=== PATIENT | female | born 1985 | race American Indian/Alaskan Native ===

== ENCOUNTER 2017-01-23 04:17 | Inpatient (IN) | payer OTHER, MEDICAID ==
[2017-01-23] MEDS ORDERED: XYLOCAINE 2% INFILTRATI ONE (04:35)
[2017-01-23] MEDS ORDERED: ZOFRAN IV PRN (04:35)
[2017-01-23] MEDS ORDERED: BRETHINE SUB-Q PRN (04:35)
[2017-01-23] MEDS ORDERED: POLYCILLIN/NS 2 GM/100 ML 2 GM/100 ML BAG IV ONE ×2 (04:35→04:41)
[2017-01-23] MEDS ORDERED: ePHEDrine SULFATE IV PRN (04:35)
[2017-01-23] MEDS ORDERED: SUBLIMAZE IV PRN (04:35)
[2017-01-23] MEDS ORDERED: MINERAL OIL PO PRN (04:35)
[2017-01-23] MEDS ORDERED: LACTATED RINGERS 1,000 ML ONE (04:40)
[2017-01-23] MEDS ORDERED: SUBLIMAZE ONE (04:41)
--- NOTE | 2017-01-23 04:43 | History and Physical Report ---
History of Present Illness Date of examination: 01/23/17 (pt presents in active labor) Date of admission: 01/23/17 04:28 History of present illness: EDC Confirmation: 01/31/2017 Gestational Age: 7 1/7 weeks Past History : 4 Para: 1 Past Medical History: Reviewed history from 06/05/2013 and no changes required: Negative Past Medical History Hyperlipidemia Past Surgical History: Reviewed history from 07/10/2013 and no changes required: negative Past Medical History Abnormal PAP: positive, unsure of when or type JCARLOS Exposure: negative Infertility: negative Uterine Anomaly: negative Uterine Surgery (not C/S): negative Other Gynecologic Problems: negative Social Hx: Patient is single Infection History Hx of STD: none HIV Risk Eval: low risk Hepatitis B Risk Eval: low risk Personal hx. of genital herpes: no Partner hx. of genital herpes: no Rash, Viral, or Febrile illness since last LMP? no Varicella/Chicken Pox Status: Previous Disease Genetic History Congenital Heart Defect: Mom: no Dad: no Dragan Disease: Mom: no Dad: no Thalassemia Mom: no Dad: no Neural Tube Defect Mom: no Dad: no Down's Syndrome Mom: no Dad: no Bc-Sachs Mom: no Dad: no Sickle Cell Disease/Trait Mom: no Dad: no Hemophilia Mom: no Dad: no Muscular Dystrophy Mom: no Dad: no Cystic Fibrosis Mom: no Dad: no [place] Chorea Mom: no Dad: no Mental Retardation Mom: no Dad: no Fragile X Mom: no Dad: no Other Genetic/Chromosomal Disorder Mom: no Dad: no Child w/other defect Mom: no Dad: no Enviromental Exposures Xray Exposure: no Medication, drug, or alcohol use since LMP: no Chemical/Other Exposure: no Exposure to Cat Liter: no Hx of Parvovirus (Fifth Disease): no Occupational Exposure to Children: none Active Medications: None Current Allergies: No known allergies Laboratory Results Date/Time Collected: 06/15/2016 Routine Urinalysis Leukocytes: negative Nitrite: negative Urobilinogen: negative Protein: Negative Blood: negative Ketone: negative Bilirubin: negative Glucose: Negative Urine HCG: positive Review of Systems General Denies fever, chills, sweats, anorexia, fatigue, weakness, malaise, weight loss and sleep disorder. Denies nausea, vomiting, headache, swelling of legs, abdominal pain, vaginal discharge, vaginal bleeding and contractions. Denies vaginal discharge, incontinence, dysuria, hematuria, urinary frequency, amenorrhea, menorrhagia, abnormal vaginal bleeding, pelvic pain, genital sores, decreased libido, painful periods, painful sex, urinary urgency, hot flashes, vaginal dryness, vaginal itching and vaginal odor. CV Denies chest pains, palpitations, syncope, dyspnea on exertion, orthopnea, PND and peripheral edema. Resp Denies cough, dyspnea at rest, excessive sputum, hemoptysis, wheezing and pleurisy. GI Denies nausea, vomiting, diarrhea, constipation, change in bowel habits, abdominal pain, melena, hematochezia, jaundice, gas/bloating, indigestion/ heartburn, dysphagia and odynophagia. Endo Denies cold intolerance, heat intolerance, polydipsia, polyphagia, polyuria and unusual weight change. Breast Denies left breast lump, right breast lump, nipple discharge, bloody discharge from nipple, breast pain, abnormal mammogram and breast enlargement. MS Denies back pain, joint pain, joint swelling, muscle cramps, muscle weakness, stiffness, arthritis, sciatica, restless legs, leg pain at night and leg pain with exertion. Derm Denies rash, itching, dryness and suspicious lesions. Neuro Denies paralysis, paresthesias, headache, seizures, tremors, vertigo, transient blindness, frequent falls, frequent headaches and difficulty walking. Psych Denies depression, anxiety, irritability and mood swings. Eyes Denies blurring, diplopia, irritation, discharge, vision loss, eye pain and photophobia. ENT Denies earache, ear discharge, tinnitus, decreased hearing, nasal congestion, nosebleeds, sore throat and hoarseness. Allergy Denies urticaria, allergic rash, hay fever and recurrent infections. Heme Denies abnormal bruising, bleeding and enlarged lymph nodes. 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 03/01/14 Unknown Rx - Physical Exam Breasts: Positive: deferred Cardiovascular: Regular rate, Normal S1, Normal S2 Lungs: Positive: Normal air movement Abdomen: Positive: normal appearance, soft, normal bowel sounds. Negative: distention, tenderness Genitourinary (Female): Positive: normal external genitalia, normal perenium Vulva: both: normal Vagina: Positive: normal moisture. Negative: discharge Cervix: Negative: lesion, discharge Uterus: Positive: normal size, normal contour Adnexa: both: normal Anus/Rectum: Positive: normal perianal skin, heme negative. Negative: rectal mass, hemorrhoids Extremities: Positive: normal Deep Tendon Reflex Grade: Normal +2 - Obstetrical FHR: category 1 Uterine Contraction Monitor Mode: External Cervical Dilatation: 5 (BBOW) Cervical Effacement Percentage: 90 station: -1 Uterine Contraction Duration: q4-6 Uterine Contraction Pattern: Regular Uterine Contraction Intensity: Moderate Results All other labs normal. Laboratory Data-Patient Name: MASTER AREVALO Test Date Result Blood Type 07/13/2016 O Rh 07/13/2016 RH(D) POSITIVE Antibody Screen negative Rubella 07/13/2016 immune Serology (RPR) 07/13/2016 NR HBsAg 07/13/2016 NON-REACTIVE Hemoglobin 10/12/2016 10.6 Hematocrit 10/12/2016 32.8 Platelets 07/13/2016 336 THOUSAND/UL Chlamydia DNA 06/15/2016 NOT DETECTED GC DNA/Culture 06/15/2016 Urine Culture Group B Strep cult POSITIVE PAP 01/13/2016 Normal HIV 08/08/2013 AFP/Quad Screen 08/10/2016 Glucola Test 10/12/2016 93 3hr GTT (Fasting) 1 hr 2 hr 3 hr [facility]-Patient Name:MASTER AREVALO Test Date Result Varicella Ab Sickle Cell 07/13/2016 NEGATIVE PPD Fibronectin Cystic Fibrosis Parvovirus TSH 10/12/2016 0.52 Free T4 Hepatitis C 01/13/2016 NON-REACTIVE ALT AST Uric Acid Creatinine 24 hr Urine Protein AMIRAH Assessment and Plan 31yo @ 38w6d in active labor GBS+ Orders in EMR Anticipate delivery
[2017-01-23] MEDS ORDERED: LACTATED RINGERS 1,000 ML IV SCH (05:00)
[2017-01-23] MEDS ORDERED: PITOCin/NS 20 UNIT/1000ML DRIP 20 UNITS/1,000 ML BAG IV SCH (05:00)
[2017-01-23] MEDS ORDERED: PITOCin/NS 30 UNIT/500ML 30 UNITS/500 ML BAG IV SCH (05:00)
--- NOTE | 2017-01-23 05:46 | Progress Note ---
Assessment and Plan AROM meconium large amt of fluid Internal monitors NICU notified Re-eval as needed. Subjective - Subjective Date of service: 01/23/17 (poor quality tracing) Interval history: EDC Confirmation: 01/31/2017 Gestational Age: 7 1/7 weeks Past History : 4 Para: 1 Past Medical History: Reviewed history from 06/05/2013 and no changes required: Negative Past Medical History Hyperlipidemia Past Surgical History: Reviewed history from 07/10/2013 and no changes required: negative Past Medical History Abnormal PAP: positive, unsure of when or type JCARLOS Exposure: negative Infertility: negative Uterine Anomaly: negative Uterine Surgery (not C/S): negative Other Gynecologic Problems: negative Social Hx: Patient is single Infection History Hx of STD: none HIV Risk Eval: low risk Hepatitis B Risk Eval: low risk Personal hx. of genital herpes: no Partner hx. of genital herpes: no Rash, Viral, or Febrile illness since last LMP? no Varicella/Chicken Pox Status: Previous Disease Genetic History Congenital Heart Defect: Mom: no Dad: no Dragan Disease: Mom: no Dad: no Thalassemia Mom: no Dad: no Neural Tube Defect Mom: no Dad: no Down's Syndrome Mom: no Dad: no Bc-Sachs Mom: no Dad: no Sickle Cell Disease/Trait Mom: no Dad: no Hemophilia Mom: no Dad: no Muscular Dystrophy Mom: no Dad: no Cystic Fibrosis Mom: no Dad: no [place] Chorea Mom: no Dad: no Mental Retardation Mom: no Dad: no Fragile X Mom: no Dad: no Other Genetic/Chromosomal Disorder Mom: no Dad: no Child w/other defect Mom: no Dad: no Enviromental Exposures Xray Exposure: no Medication, drug, or alcohol use since LMP: no Chemical/Other Exposure: no Exposure to Cat Liter: no Hx of Parvovirus (Fifth Disease): no Occupational Exposure to Children: none Active Medications: None Current Allergies: No known allergies Laboratory Results Date/Time Collected: 06/15/2016 Routine Urinalysis Leukocytes: negative Nitrite: negative Urobilinogen: negative Protein: Negative Blood: negative Ketone: negative Bilirubin: negative Glucose: Negative Urine HCG: positive Review of Systems General Denies fever, chills, sweats, anorexia, fatigue, weakness, malaise, weight loss and sleep disorder. Denies nausea, vomiting, headache, swelling of legs, abdominal pain, vaginal discharge, vaginal bleeding and contractions. Denies vaginal discharge, incontinence, dysuria, hematuria, urinary frequency, amenorrhea, menorrhagia, abnormal vaginal bleeding, pelvic pain, genital sores, decreased libido, painful periods, painful sex, urinary urgency, hot flashes, vaginal dryness, vaginal itching and vaginal odor. CV Denies chest pains, palpitations, syncope, dyspnea on exertion, orthopnea, PND and peripheral edema. Resp Denies cough, dyspnea at rest, excessive sputum, hemoptysis, wheezing and pleurisy. GI Denies nausea, vomiting, diarrhea, constipation, change in bowel habits, abdominal pain, melena, hematochezia, jaundice, gas/bloating, indigestion/ heartburn, dysphagia and odynophagia. Endo Denies cold intolerance, heat intolerance, polydipsia, polyphagia, polyuria and unusual weight change. Breast Denies left breast lump, right breast lump, nipple discharge, bloody discharge from nipple, breast pain, abnormal mammogram and breast enlargement. MS Denies back pain, joint pain, joint swelling, muscle cramps, muscle weakness, stiffness, arthritis, sciatica, restless legs, leg pain at night and leg pain with exertion. Derm Denies rash, itching, dryness and suspicious lesions. Neuro Denies paralysis, paresthesias, headache, seizures, tremors, vertigo, transient blindness, frequent falls, frequent headaches and difficulty walking. Psych Denies depression, anxiety, irritability and mood swings. Eyes Denies blurring, diplopia, irritation, discharge, vision loss, eye pain and photophobia. ENT Denies earache, ear discharge, tinnitus, decreased hearing, nasal congestion, nosebleeds, sore throat and hoarseness. Allergy Denies urticaria, allergic rash, hay fever and recurrent infections. Heme Denies abnormal bruising, bleeding and enlarged lymph nodes. 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 Absent: distention, tenderness Uterus: Present: normal FHR: auscultation normal, category 1 Uterine Contraction Monitor Mode: Internal Cervical Dilatation: 6 (AROM/meconium) Cervical Effacement Percentage: 80 (ISE/IUPC placed) station: -1 Uterine Contraction Pattern: Regular Uterine Contraction Intensity: Moderate Extremities: normal Deep Tendon Reflex Grade: Normal +2
[2017-01-23 06:00] LABS: Hematocrit 32.2 % (30.3-42.9); Hemoglobin 10.5 gm/dl (10.1-14.3); Mean Corpuscular HGB Conc 33 % (30-34); Mean Corpuscular Volume 79 fl (79-97); Platelet Count 345 K/mm3 (140-440); Red Blood Count 4.07 M/mm3 (3.65-5.03); Red Cell Distribution Width 15.4 % (13.2-15.2); White Blood Count 7.5 K/mm3 (4.5-11.0)
[2017-01-23 06:07] LABS: Mean Corpuscular Hemoglobin 26 pg (28-32)
[2017-01-23] MEDS ORDERED: MILK OF MAGNESIA PO PRN (06:23)
[2017-01-23] MEDS ORDERED: TYLENOL PO PRN (06:23)
[2017-01-23] MEDS ORDERED: DULCOLAX PR PRN (06:23)
[2017-01-23] MEDS ORDERED: TUCKS PAD TP PRN (06:23)
[2017-01-23] MEDS ORDERED: PHENERGAN PO PRN (06:23)
[2017-01-23] MEDS ORDERED: BENADRYL PO PRN (06:23)
[2017-01-23] MEDS ORDERED: LANSINOH TP PRN (06:23)
[2017-01-23] MEDS ORDERED: NORCO 5/325 PO PRN (06:23)
--- NOTE | 2017-01-23 06:34 | Procedure Note ---
OB Delivery Note - Delivery Date of Delivery: 01/23/17 Air Bag Buffer: JESSICA COLVIN Estimated blood loss: 300cc - Vaginal Delivery presentation: vertex Delivery position: OA Intrapartum events: meconium, hydramnios Delivery induction: none Delivery augmentation: pitocin Delivery monitor: internal FHT, internal uterine Route of delivery: Delivery placenta: spontaneous Delivery cord: 3 umbilical vessels Episiotomy: none Delivery laceration: 1st degree Anesthesia: intravenous Delivery comments: NICU called to room for meconium Precipitous delivery controlled. live born male over intact perineum. Baby to warmer crying. Cord blood obt Placenta and membrane del complete and intact, 3 vessel cord. Placenta to pathology. Pit IM IV to be restarted, to hang IV pitocin. NICU arrived after delivery of baby. 8/9, EBL 300, Wgt 5-11. Mom and baby remain LDR stable. - Infant A at 1 minute: 8 at 5 minutes: 9 Infant Gender: Male (wgt 5-11)
[2017-01-23] MEDS ORDERED: SODIUM CHLORIDE FLUSH SYRINGE 10 ML IV PRN (07:00)
[2017-01-23] MEDS: MOTRIN PO SCH ×2 (08:07→14:21)
[2017-01-23] MEDS ORDERED: POLYCILLIN/NS 1 GM/50 ML 1 GM/50 ML BAG IV SCH (09:00)
[2017-01-23] MEDS: PRENATAL VITAMIN PO SCH (10:04)
[2017-01-23] MEDS: COLACE PO SCH (10:05)
[2017-01-24 00:04] LABS: Hematocrit 28.7 % (30.3-42.9); Hemoglobin 9.5 gm/dl (10.1-14.3)
[2017-01-24] MEDS: MOTRIN PO SCH ×3 (05:23→18:23)
--- NOTE | 2017-01-24 05:35 | Progress Note ---
Assessment and Plan - Patient Problems (1) Spontaneous vaginal delivery Onset Date: 01/23/17 Current Visit: Yes Status: Acute Plan to address problem: pt w/o complaint VSS FF Lochia small perineum intact H&H 04/28 drop r/t blood loss from delivery Pt is w/o s/sx of anemia. Doing well s/p vag delivery P: continue pathway Adv activity. GBS+ 48 hr hold on NB. Subjective - Subjective Date of service: 01/24/17 (pt w/o complaint) Principal diagnosis: male 01/23/17 Interval history: EDC Confirmation: 01/31/2017 Gestational Age: 7 1/7 weeks Past History : 4 Para: 1 Past Medical History: Reviewed history from 06/05/2013 and no changes required: Negative Past Medical History Hyperlipidemia Past Surgical History: Reviewed history from 07/10/2013 and no changes required: negative Past Medical History Abnormal PAP: positive, unsure of when or type JCARLOS Exposure: negative Infertility: negative Uterine Anomaly: negative Uterine Surgery (not C/S): negative Other Gynecologic Problems: negative Social Hx: Patient is single Infection History Hx of STD: none HIV Risk Eval: low risk Hepatitis B Risk Eval: low risk Personal hx. of genital herpes: no Partner hx. of genital herpes: no Rash, Viral, or Febrile illness since last LMP? no Varicella/Chicken Pox Status: Previous Disease Genetic History Congenital Heart Defect: Mom: no Dad: no Dragan Disease: Mom: no Dad: no Thalassemia Mom: no Dad: no Neural Tube Defect Mom: no Dad: no Down's Syndrome Mom: no Dad: no Bc-Sachs Mom: no Dad: no Sickle Cell Disease/Trait Mom: no Dad: no Hemophilia Mom: no Dad: no Muscular Dystrophy Mom: no Dad: no Cystic Fibrosis Mom: no Dad: no [place] Chorea Mom: no Dad: no Mental Retardation Mom: no Dad: no Fragile X Mom: no Dad: no Other Genetic/Chromosomal Disorder Mom: no Dad: no Child w/other defect Mom: no Dad: no Enviromental Exposures Xray Exposure: no Medication, drug, or alcohol use since LMP: no Chemical/Other Exposure: no Exposure to Cat Liter: no Hx of Parvovirus (Fifth Disease): no Occupational Exposure to Children: none Active Medications: None Current Allergies: No known allergies Laboratory Results Date/Time Collected: 06/15/2016 Routine Urinalysis Leukocytes: negative Nitrite: negative Urobilinogen: negative Protein: Negative Blood: negative Ketone: negative Bilirubin: negative Glucose: Negative Urine HCG: positive Review of Systems General Denies fever, chills, sweats, anorexia, fatigue, weakness, malaise, weight loss and sleep disorder. Denies nausea, vomiting, headache, swelling of legs, abdominal pain, vaginal discharge, vaginal bleeding and contractions. Denies vaginal discharge, incontinence, dysuria, hematuria, urinary frequency, amenorrhea, menorrhagia, abnormal vaginal bleeding, pelvic pain, genital sores, decreased libido, painful periods, painful sex, urinary urgency, hot flashes, vaginal dryness, vaginal itching and vaginal odor. CV Denies chest pains, palpitations, syncope, dyspnea on exertion, orthopnea, PND and peripheral edema. Resp Denies cough, dyspnea at rest, excessive sputum, hemoptysis, wheezing and pleurisy. GI Denies nausea, vomiting, diarrhea, constipation, change in bowel habits, abdominal pain, melena, hematochezia, jaundice, gas/bloating, indigestion/ heartburn, dysphagia and odynophagia. Endo Denies cold intolerance, heat intolerance, polydipsia, polyphagia, polyuria and unusual weight change. Breast Denies left breast lump, right breast lump, nipple discharge, bloody discharge from nipple, breast pain, abnormal mammogram and breast enlargement. MS Denies back pain, joint pain, joint swelling, muscle cramps, muscle weakness, stiffness, arthritis, sciatica, restless legs, leg pain at night and leg pain with exertion. Derm Denies rash, itching, dryness and suspicious lesions. Neuro Denies paralysis, paresthesias, headache, seizures, tremors, vertigo, transient blindness, frequent falls, frequent headaches and difficulty walking. Psych Denies depression, anxiety, irritability and mood swings. Eyes Denies blurring, diplopia, irritation, discharge, vision loss, eye pain and photophobia. ENT Denies earache, ear discharge, tinnitus, decreased hearing, nasal congestion, nosebleeds, sore throat and hoarseness. Allergy Denies urticaria, allergic rash, hay fever and recurrent infections. Heme Denies abnormal bruising, bleeding and enlarged lymph nodes. 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: sono FHT: 150s Patient reports: appetite normal, voiding normally, pain well controlled, ambulating normally : doing well Objective - Vital Signs Latest vital signs: Vital Signs Temp Pulse Pulse Resp BP BP Pulse Ox 01/24/17 00:55 98.5 F 76 20 115/56 01/23/17 16:35 98.3 F 71 18 135/78 01/23/17 12:30 98.8 F 70 18 111/53 01/23/17 07:40 98.4 F 71 18 127/63 01/23/17 07:04 71 125/82 01/23/17 06:59 71 130/70 01/23/17 06:43 73 129/59 01/23/17 06:28 86 120/71 01/23/17 06:13 86 118/68 01/23/17 05:59 139 H 98 01/23/17 05:54 94 H 96 01/23/17 05:49 85 98 01/23/17 05:44 83 99 01/23/17 05:39 79 99 01/23/17 05:34 109 H 100 Intake and Output 01/23/17 01/23/17 01/24/17 14:59 22:59 06:59 Intake Total 360 600 240 Output Total 900 400 Balance -540 200 240 Intake: Oral 360 600 240 Output: Urine 900 400 Void 900 400 Other: Total, Intake Amount 360 240 240 Total, Output Amount 600 400 # Voids Void 3 1 - Exam Breasts: Present: normal, Cardiovascular: Present: Regular rate Lungs: Present: Clear to auscultation, Normal air movement Abdomen: Present: normal appearance, soft, normal bowel sounds Vulva: both: normal Uterus: Present: normal, fundal height below umbilicus Extremities: Present: normal Deep Tendon Reflex Grade: Normal +2 Incision: Present: normal - Labs Labs: Abnormal lab results 01/23/17 01/23/17 Range/Units 05:10 23:35 Hgb 9.5 L (10.1-14.3) gm/dl Hct 28.7 L (30.3-42.9) % MCH 26 L (28-32) pg RDW 15.4 H (13.2-15.2) %
[2017-01-24] MEDS ORDERED: BOOSTRIX IM ONE (06:00)
[2017-01-24] MEDS ORDERED: M-M-R II VACCINE SUB-Q ONE (06:23)
[2017-01-24] MEDS: PRENATAL VITAMIN PO SCH (10:42)
[2017-01-24] MEDS: COLACE PO SCH ×2 (10:42→22:26)
--- NOTE | 2017-01-25 06:39 | Discharge Summary ---
Providers - Providers Date of Admission: 01/23/17 04:28 Date of discharge: 01/25/17 Attending physician: YUNIER CORNELIUS Primary care physician: YUNIER CORNELIUS Hospitalization Reason for admission: active labor Delivery: Episiotomy: none Laceration: none Incision: normal Other procedures: none complications: none Discharge diagnosis: IUP at term delivered [place] baby: male Hospital course: uncomplicated vaginal delivery Pt w/o complaint VSS FF below umb Lochia small perineum slight swelling intact. H&H 04/28 drop r/t blood loss from delivery. No s/sx of anemia. Doing well s/p vag delivery. P: d/c today with instructions RTO 4 weeks PP care. One week for circ. Condition at discharge: Good Disposition: DC- TO HOME OR SELFCARE - Discharge Diagnoses (1) Spontaneous vaginal delivery Status: Acute Comment: rto 4 weeks pp care Plan - Discharge Medications Prescriptions: Ibuprofen [Motrin 800 MG tab] 800 mg PO TID PRN #30 tablet PRN Reason: Pain Lidocain2.5%/Prilocai2.5% [Emla] 5 gm TP PRN #1 tube - Provider Discharge Summary Activity: routine, no sex for 6 weeks, no heavy lifting 4 weeks, no strenuous exercise Diet: routine Instructions: routine Additional instructions: [] Smoking cessation referral if applicable(refer to patient education folder for contact #) [] Refer to [facility] Booklet Call your doctor immediately for: * Fever > 100.5 * Heavy vaginal bleeding ( >1 pad per hour) * Severe persistent headache * Shortness of breath * Reddened, hot, painful area to leg or breast * Drainage or odor from incision. * Keep incision clean and dry at all times and follow doctor's instructions regarding bathing/showering - Follow up plan Follow up: YUNIER CORNELIUS MD [Primary Care Provider] - 7 Days (Congratulations! Please call [phone] to schedule your visit in 4 weeks and your son's circumcision in 1 week. Bring the EMLA cream with you to his visit. Take medication as prescribed. Call with concerns.)
[2017-01-25 09:56] VITALS: BP 139/71
[2017-01-25] MEDS: PRENATAL VITAMIN PO SCH (10:47)
[2017-01-25] MEDS: COLACE PO SCH (10:48)
== END 2017-01-25 11:10 | disposition home or self-care (01) | DRG 775 ==
LOC: TRG 04:17 → LD 04:28 → OB 07:42
PROVIDERS: ADMIT Obstetrics & Gynecology; ATTEND Obstetrics & Gynecology
PROC: 10E0XZZ Delivery of Products of Conception, External Approach (ICD-10-PCS; principal; 2017-01-23)
PROC: 10907ZC Drainage of Amniotic Fluid, Therapeutic from Products of Conception, Via Natural or Artificial Opening (ICD-10-PCS; 2017-01-23)
DX: O99.824 Streptococcus B carrier state complicating childbirth (principal); O77.0 Labor and delivery complicated by meconium in amniotic fluid; O40.3XX0 Polyhydramnios, third trimester, not applicable or unspecified; O70.0 First degree perineal laceration during delivery; O75.89 Other specified complications of labor and delivery; E78.5 Hyperlipidemia, unspecified; Z3A.38 38 weeks gestation of pregnancy; Z37.0 Single live birth; O62.3 Precipitate labor
CPT/HCPCS: 36415; 85014; 85018; 85027; 86592; 86850; 86900; 86901; 88307; 90707; 90715; 99211; A6250; G0463; J0290; J2590; J3010; J7120